=== PATIENT | female | born 1995 | race African-American/Black ===

== ENCOUNTER 2019-02-08 00:57 | Emergency (ER) | payer OTHER ==
[~2019-02-08] VITALS: Ht 170.2 cm; Wt 82.6 kg
[2019-02-08] MEDS ORDERED: SENNA-DOCUSATE1 EAC1 PO (02:11)
[2019-02-08] MEDS ORDERED: BACTRIM DS TAB1 EACH PO (02:11)
[2019-02-08] MEDS ORDERED: NORCO 5-325 TA1 EAC1 PO (02:11)
[2019-02-08] MEDS ORDERED: IBUPROFEN 600600 M1 PO (02:11)
[2019-02-08 02:30] VITALS: BP 119/71
== END 2019-02-08 02:30 | disposition home or self-care (01) ==
LOC: ER 00:57
DX: L02.411 Cutaneous abscess of right axilla (principal); L73.2 Hidradenitis suppurativa; F17.210 Nicotine dependence, cigarettes, uncomplicated

== ENCOUNTER 2019-03-14 03:11 | Emergency (ER) | payer OTHER ==
[~2019-03-14] VITALS: Ht 170.2 cm; Wt 80.7 kg
[~2019-03-14 03:11] MED LIST: BACTRIM DS TAB1 EACH PO; IBUPROFEN 600600 M1 PO; NORCO 5-325 TA1 EAC1 PO; SENNA-DOCUSATE1 EAC1 PO
[2019-03-14 03:42] LABS: HEMATOCRIT 36.3 % (37.0-47.0); HEMOGLOBIN 12.1 gm/dL (12.0-15.0); MCH 27.9 pg (26.0-34.0); MCHC 33.2 g/dL (28.0-37.0); MCV 83.9 fL (80.0-100.0); PLATELET COUNT 269 thou/uL (150-400); RBC 4.33 mil/uL (4.20-5.00); RDW 13.7 % (10.5-14.5)
[2019-03-14 03:54] LABS: ANION GAP 15 mmol/L (7-16); BUN 10 mg/dL (7-18); CALCIUM 9.9 mg/dL (8.5-10.1); CHLORIDE 105 mmol/L (98-107); CO2 22 mmol/L (21-32); GLUCOSE 140 mg/dL (74-106); SODIUM 142 mmol/L (136-145); TROPONIN-I <0.06 ng/mL (<0.06)
[2019-03-14 03:55] LABS: POTASSIUM 2.9 mmol/L (3.5-5.1)
[2019-03-14 04:15] VITALS: BP 116/67
[2019-03-14 04:15] LABS: ABSOLUTE NEUTROPHILS 8.1 thou/uL (1.4-8.2); LARGE PLATELETS OCCASIONAL
--- NOTE | 2019-03-14 11:09 | EKG ---
[place] [address] 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: : 1995 Requested By: Lisa Potter Order Number: [id number] MD: Mahendra Calvillo Measurements Intervals [place] Rate: 135 P: 66 RI: 149 QRS: 52 QRSD: 88 T: 260 QT: 272 QTc: 408 Interpretive Statements Sinus tachycardia Nonspecific T abnormalities, diffuse leads Prolonged QT interval No previous ECG available for comparison Electronically Signed On 03-14-2019 11:08:58 CDT by Mahendra Calvillo [email or web address] <ELECTRONICALLY SIGNED> By: Mahendra Calvillo MD, [facility] 03/14/19 1108 0314 0314 Mahendra Calvillo MD, FACC /EPI
== END 2019-03-14 04:51 | disposition home or self-care (01) ==
LOC: ER 03:11
PROVIDERS: Emergency Medicine
DX: R07.9 Chest pain, unspecified (principal); R00.0 Tachycardia, unspecified; F17.210 Nicotine dependence, cigarettes, uncomplicated

== ENCOUNTER 2019-11-26 20:30 | Emergency (ER) | payer OTHER ==
[~2019-11-26] VITALS: Ht 170.2 cm; Wt 81.7 kg
[2019-11-26 20:53] LABS: URINE BILIRUBIN 1+ (Negative); URINE BLOOD NEGATIVE (Negative); URINE CLARITY CLEAR; URINE COLOR YELLOW; URINE GLUCOSE-RANDOM* NEGATIVE (Negative); URINE KETONES TRACE (Negative); URINE LEUKOCYTES-REFLEX NEGATIVE (Negative); URINE NITRITE-REFLEX NEGATIVE (Negative); URINE PROTEIN (DIPSTICK) NEGATIVE (Negative); URINE SPECIFIC GRAVITY >= 1.030 (1.005-1.035); URINE UROBILINOGEN 0.2 E.U./dl (0.2-1.0)
[2019-11-26 21:17] LABS: ABSOLUTE NEUTROPHILS 5.1 thou/uL (1.4-8.2); BASOPHILS 0.6 % (0.0-2.0); EOSINOPHILS 0.9 % (0.0-3.0); HEMATOCRIT 32.5 % (37.0-47.0); HEMOGLOBIN 11.1 gm/dL (12.0-15.0); LYMPHOCYTES 28.5 % (24.0-44.0); MCH 29.5 pg (26.0-34.0); MCHC 34.2 g/dL (28.0-37.0); MCV 86.2 fL (80.0-100.0); MONOCYTES 4.2 % (1.0-8.0); PLATELET COUNT 231 thou/uL (150-400); POLYS 65.8 % (36.0-66.0); RBC 3.77 mil/uL (4.20-5.00); RDW 12.8 % (10.5-14.5); WBC 7.7 thou/uL (4.0-11.0)
[2019-11-26 21:42] LABS: ALBUMIN 3.7 g/dL (3.4-5.0); CREATININE 0.8 mg/dL (0.6-1.0); TOTAL BILIRUBIN 0.3 mg/dL (0.2-1.0); TOTAL PROTEIN 7.2 g/dL (6.4-8.2)
[2019-11-26 21:45] LABS: POTASSIUM 2.9 mmol/L (3.5-5.1)
[2019-11-26] MEDS ORDERED: PEPCID20 MG PO (22:47)
[2019-11-26 22:59] VITALS: BP 142/88
== END 2019-11-26 23:00 | disposition home or self-care (01) ==
LOC: ER 20:30
PROVIDERS: Physician Assistant
DX: R10.13 Epigastric pain (principal); E87.6 Hypokalemia; R63.0 Anorexia; N93.9 Abnormal uterine and vaginal bleeding, unspecified; F17.210 Nicotine dependence, cigarettes, uncomplicated

== ENCOUNTER 2020-01-22 03:34 | Emergency (ER) | payer OTHER ==
[~2020-01-22] VITALS: Ht 170.2 cm; Wt 81.7 kg
[~2020-01-22 03:34] MED LIST changes: +PEPCID20 MG PO
[2020-01-22] MEDS ORDERED: AMOXICILLIN 50500 MG PO (03:42)
[2020-01-22] MEDS ORDERED: NORCO 10-325 T1 EACH PO (03:43)
[2020-01-22 05:08] LABS: CALCIUM 9.1 mg/dL (8.5-10.1); CREATININE 0.7 mg/dL (0.6-1.0); POTASSIUM 3.2 mmol/L (3.5-5.1)
[2020-01-22 05:16] LABS: ABSOLUTE NEUTROPHILS 6.6 thou/uL (1.4-8.2); BASOPHILS 0.4 % (0.0-2.0); EOSINOPHILS 1.2 % (0.0-3.0); HEMATOCRIT 32.4 % (37.0-47.0); HEMOGLOBIN 10.8 gm/dL (12.0-15.0); LYMPHOCYTES 35.2 % (24.0-44.0); MCH 28.1 pg (26.0-34.0); MCHC 33.2 g/dL (28.0-37.0); MCV 84.7 fL (80.0-100.0); MONOCYTES 5.3 % (1.0-8.0); PLATELET COUNT 237 thou/uL (150-400); POLYS 57.9 % (36.0-66.0); RBC 3.83 mil/uL (4.20-5.00); RDW 14.7 % (10.5-14.5); WBC 11.3 thou/uL (4.0-11.0)
[2020-01-22] MEDS ORDERED: ONDANSETRON ODT4 MG PO (05:36)
[2020-01-22 05:57] VITALS: BP 118/58
== END 2020-01-22 06:05 ==
LOC: ER 03:34
PROVIDERS: Emergency Medicine
DX: N93.9 Abnormal uterine and vaginal bleeding, unspecified (principal); F17.210 Nicotine dependence, cigarettes, uncomplicated; Z79.899 Other long term (current) drug therapy

== ENCOUNTER 2020-06-01 12:53 | Emergency (ER) | payer OTHER ==
[~2020-06-01] VITALS: Ht 172.7 cm; Wt 77.1 kg
[~2020-06-01 12:53] MED LIST changes: +AMOXICILLIN 50500 MG PO; +NORCO 10-325 T1 EACH PO; +ONDANSETRON ODT4 MG PO
[2020-06-01 13:40] LABS: ABSOLUTE NEUTROPHILS 5.8 thou/uL (1.4-8.2); BASOPHILS 0.7 % (0.0-2.0); EOSINOPHILS 1.4 % (0.0-3.0); HEMATOCRIT 38.1 % (37.0-47.0); HEMOGLOBIN 12.2 gm/dL (12.0-15.0); LYMPHOCYTES 22.9 % (24.0-44.0); MCHC 32.1 g/dL (28.0-37.0); MCV 84.2 fL (80.0-100.0); MONOCYTES 4.8 % (1.0-8.0); POLYS 70.2 % (36.0-66.0); RBC 4.52 mil/uL (4.20-5.00); WBC 8.3 thou/uL (4.0-11.0)
[2020-06-01 13:44] LABS: ANION GAP 7 mmol/L (7-16); BUN 14 mg/dL (7-18); CHLORIDE 106 mmol/L (98-107); CO2 23 mmol/L (21-32); CREATININE 0.8 mg/dL (0.6-1.0); GLUCOSE 95 mg/dL (74-106); POTASSIUM 4.1 mmol/L (3.5-5.1); SODIUM 136 mmol/L (136-145)
[2020-06-01 13:50] LABS: ALBUMIN 3.4 g/dL (3.4-5.0); DIRECT BILIRUBIN < 0.1 mg/dL (<0.1-0.2); LIPASE 106 U/L (73-393); SGOT 14 U/L (15-37); SGPT 22 U/L (14-59); TOTAL BILIRUBIN 0.3 mg/dL (0.2-1.0); TOTAL PROTEIN 7.4 g/dL (6.4-8.2)
[2020-06-01 14:09] LABS: URINE BILIRUBIN NEGATIVE (Negative); URINE BLOOD NEGATIVE (Negative); URINE CLARITY CLEAR; URINE COLOR YELLOW; URINE GLUCOSE-RANDOM* NEGATIVE (Negative); URINE KETONES NEGATIVE (Negative); URINE LEUKOCYTES-REFLEX NEGATIVE (Negative); URINE NITRITE-REFLEX NEGATIVE (Negative); URINE PROTEIN (DIPSTICK) NEGATIVE (Negative); URINE SPECIFIC GRAVITY 1.015 (1.005-1.035); URINE UROBILINOGEN 0.2 E.U./dl (0.2-1.0)
[2020-06-01 15:11] LABS: PLATELET COUNT 203 thou/uL (150-400); PLATELET ESTIMATE NORMAL
[2020-06-01 15:45] VITALS: BP 114/62
== END 2020-06-01 16:03 | disposition home or self-care (01) ==
LOC: ER 12:53
PROVIDERS: Nurse Practitioner
DX: N83.8 Other noninflammatory disorders of ovary, fallopian tube and broad ligament (principal); F17.210 Nicotine dependence, cigarettes, uncomplicated